=== PATIENT | male | born 1940 | race Caucasian/White ===

== ENCOUNTER 2017-02-24 08:59 | Observation (INO) | payer MEDICARE ==
[2017-02-23 11:44] VITALS: BP 152/85
[~2017-02-24] VITALS: Ht 188 cm; Wt 78.7 kg
[~2017-02-24 08:59] MED LIST: WARF3TAB PO
[2017-02-24] MEDS: SODIUM CHLORIDE 0.9% 1,000 ML IV SCH ×2 (09:10→18:12)
[2017-02-24] MEDS ORDERED: CEFAZOLIN PMX 1GM/50ML 50 ML IVPB ONE (09:30)
[2017-02-24] MEDS ORDERED: MIDAZOLAM 1 MG/ML, 5ML ONE (09:36)
[2017-02-24] MEDS ORDERED: LIDOCAINE 2%, 20ML ONE (09:36)
[2017-02-24] MEDS ORDERED: CEFAZOLIN 1,000 MG ONE (09:36)
[2017-02-24] MEDS ORDERED: FENTANYL PF 100 MCG/2ML ONE (09:36)
[2017-02-24] MEDS ORDERED: CEFAZOLIN PMX 1GM/50ML 50 ML ONE (09:36)
[2017-02-24 09:59] LABS: BLOOD UREA NITROGEN 22 mg/dL (7-18)
[2017-02-24 10:55] VITALS: BP_SYST 128; BP_SYST 137; BP_DIAS 83; BP_DIAS 88
[2017-02-24] MEDS: ACETAMINOPHEN 325 MG TABLET PO PRN ×2 (11:26→18:57)
[2017-02-24 14:40] VITALS: BP 136/78
[2017-02-24] MEDS: CEFAZOLIN PMX 1GM/50ML 50 ML IVPB SCH (16:20)
[2017-02-24 20:27] VITALS: BP 116/72
[2017-02-24] MEDS ORDERED: SODIUM CHLORIDE FLUSH 10ML SYR IVF SCH (21:00)
[2017-02-24] MEDS ORDERED: TEMAZEPAM 15 MG CAPSULE PO PRN (22:30)
[2017-02-25] MEDS: CEFAZOLIN PMX 1GM/50ML 50 ML IVPB SCH (00:14)
[2017-02-25 00:23] VITALS: BP 135/83
[2017-02-25] MEDS: SODIUM CHLORIDE 0.9% 1,000 ML IV SCH (01:09)
[2017-02-25] MEDS: ACETAMINOPHEN 325 MG TABLET PO PRN (05:56)
[2017-02-25] MEDS ORDERED: ACET325T14 PO (07:41)
[2017-02-25 10:01] VITALS: BP 177/81
== END 2017-02-25 10:20 | disposition home or self-care (01) ==
LOC: CACL 08:59 → ORIP 10:47 → 5SO 11:25
PROVIDERS: ADMIT Internal Medicine Cardiovascular Disease; ATTEND Internal Medicine Cardiovascular Disease
DX: I49.5 Sick sinus syndrome (principal); I48.2 Chronic atrial fibrillation; R00.1 Bradycardia, unspecified; I35.0 Nonrheumatic aortic (valve) stenosis; G47.33 Obstructive sleep apnea (adult) (pediatric); E78.4 Other hyperlipidemia; E07.9 Disorder of thyroid, unspecified
CPT/HCPCS: 33206; 36005; 36415; 71010; 71020; 80048; 85025; 85610; 93005; 96365; 96375; 99156; 99157; C1779; C1786; C1894; G0378; J0690; J2250; J3010; J3490; Q9967; 96366

== ENCOUNTER → 2017-03-03 | Outpatient (CLI) | payer MEDICARE ==
[~2017-03-03] MED LIST changes: +ACET325T14 PO
== END | disposition home or self-care (01) ==
LOC: CFH 11:11
PROVIDERS: ATTEND Internal Medicine Cardiovascular Disease
DX: R22.1 Localized swelling, mass and lump, neck (principal); M48.02 Spinal stenosis, cervical region; M25.78 Osteophyte, vertebrae
CPT/HCPCS: 70490

== ENCOUNTER → 2018-09-26 | Outpatient (CLI) | payer MEDICARE | END | disposition home or self-care (01) | LOC: CFH 09:50 | PROVIDERS: ATTEND Physician Assistant | DX: I08.3 Combined rheumatic disorders of mitral, aortic and tricuspid valves (principal) | CPT/HCPCS: 93306 ==